=== PATIENT | female | born 1975 | race Hispanic/Latino ===

== ENCOUNTER 2023-10-28 06:56 | Observation (INO) | payer OTHER ==
[2023-10-27 09:51] LABS: BASOPHILS # (AUTO) 0.02 K/uL (0.00-0.20); BASOPHILS % (AUTO) 0.4 % (0.0-5.0); EOSINOPHILS # (AUTO) 0.06 K/uL (0.00-0.70); EOSINOPHILS % (AUTO) 1.2 % (0.0-8.0); HEMATOCRIT 39.4 % (36-48); IMMATURE GRANULOCYTE ABSOLUTE 0.01 K/uL (0-1); LYMPHOCYTES # (AUTO) 2.1 K/uL (1.0-4.8); LYMPHOCYTES % (AUTO) 40.7 % (21.0-51.0); MEAN CORPUSCULAR HGB CONC 33.8 g/dL (32.0-36.0); MONOCYTES # (AUTO) 0.3 K/uL (0.1-1.0); MONOCYTES % (AUTO) 5.4 % (3.0-13.0); NEUTROPHILS # (AUTO) 2.7 K/uL (1.8-7.7); NEUTROPHILS % (AUTO) 52.1 % (40.0-77.0); PLATELET COUNT (AUTO) 362 K/uL (130-400); RED BLOOD CELL COUNT(AUTO) 4.58 MIL/uL (4.00-5.50); RED CELL DISTRIBUTION WIDTH 12.6 % (11.0-15.5); WHITE BLOOD COUNT (AUTO) 5.2 K/uL (4.8-10.8)
[2023-10-27 09:57] VITALS: BP 118/82; PULSE 55; RESP 18
[2023-10-27 10:33] LABS: CREATININE 0.7 mg/dL (0.5-1.0); POTASSIUM 4.2 mmol/L (3.5-5.1)
[~2023-10-28] VITALS: Ht 170.2 cm; Wt 79.9 kg
[2023-10-28] VITALS (28 sets, daily range): BP systolic 114–147; BP diastolic 66–90; PULSE 62–103; RESP 9–19; O2SAT 99–100
[~2023-10-28 06:56] MED LIST: IRON PO; OMEGA 3 PO; OMEP40CA21 PO; SUCR1TAB28 PO
[2023-10-28] MEDS ORDERED: CEFAZOLIN SODIUM 2 GM VIAL ONE (07:11)
[2023-10-28] MEDS ORDERED: LACTATED RINGERS 1000ML 1,000 ML IV ONE (07:11)
[2023-10-28] MEDS ORDERED: ROCURONIUM BROMIDE 10MG/1ML 5ML VL ONE ×2 (08:17→11:21)
[2023-10-28] MEDS ORDERED: PROPOFOL 10 MG/ML 20ML VIAL IV ONE (08:17)
[2023-10-28] MEDS ORDERED: MIDAZOLAM HCL 1 MG/ML 2ML VIAL ONE (08:17)
[2023-10-28] MEDS ORDERED: LIDOCAINE PF 100MG/5ML (2%) SYRINGE 5ML ONE (08:17)
[2023-10-28] MEDS ORDERED: FENTANYL CITRATE PF 50 MCG/1 ML 2ML VIAL ONE (08:18)
[2023-10-28] MEDS ORDERED: DEXAMETHASONE SOD PHOSPHATE 4 MG/ML 1ML VIAL ONE (08:20)
[2023-10-28] MEDS ORDERED: ONDANSETRON 4MG INJ ONE (08:21)
[2023-10-28] MEDS: CEFAZOLIN SODIUM 2 GM VIAL IVPB ONE (09:35)
[2023-10-28] MEDS ORDERED: INDOCYANINE GREEN 25 MG VIAL IJ ONE (09:59)
[2023-10-28] MEDS ORDERED: BUPIVACAINE/PF 0.25% 30ML VIAL IJ ONE (10:01)
[2023-10-28] MEDS ORDERED: GLYCOPYRROLATE 0.2 MG/ML 5 ML VIAL ONE (10:16)
[2023-10-28] MEDS ORDERED: PHENYLEPHRINE HCL 10 MG/ML 1ML VIAL IV ONE (10:16)
[2023-10-28] MEDS ORDERED: HYDROMORPHONE 1 MG INJ ONE (10:21)
[2023-10-28] MEDS ORDERED: ROPIVACAINE 0.5% 5MG/ML 30ML ONE (12:51)
[2023-10-28] MEDS ORDERED: ONDANSETRON 4MG INJ IVP PRN (13:30)
[2023-10-28] MEDS ORDERED: HYDROCODONE/ACETAMINOPHEN 5/325 MG TAB PO PRN (13:30)
[2023-10-28] MEDS: ACETAMINOPHEN 1,000 MG/100 ML VIAL IV ONE (14:20)
[2023-10-28] MEDS: KETOROLAC 15MG/ML VIAL (15MG/ML) ONE (14:22)
[2023-10-28] MEDS: KETOROLAC 15MG/ML VIAL (15MG/ML) IV SCH (19:46)
[2023-10-28] MEDS: FAMOTIDINE 20MG VIAL IV SCH (19:48)
[2023-10-29] MEDS: HYDROMORPHONE 0.5 MG SYG (0.5MG/0.5ML) IVP PRN (02:02)
[2023-10-29] MEDS: LACTATED RINGERS 1000ML 1,000 ML IV SCH (02:50)
[2023-10-29 04:01] VITALS: BP 117/76; PULSE 74; RESP 16
[2023-10-29 08:00] VITALS: BP 133/94; PULSE 70; RESP 18
[2023-10-29] MEDS: FAMOTIDINE 20MG VIAL IV ONE (08:46)
[2023-10-29] MEDS: SIMETHICONE 80 MG TAB.CHEW PO SCH (08:46)
[2023-10-29] MEDS: ENOXAPARIN SODIUM 30 MG/0.3 ML SQ SCH (08:48)
[2023-10-29 11:22] VITALS: BP 130/84; PULSE 70; RESP 18
[2023-10-29 11:25] VITALS: O2SAT 98
[2023-10-29 14:00] VITALS: BP 135/80; PULSE 67; RESP 18
== END 2023-10-29 17:30 | disposition home or self-care (01) ==
LOC: DAH 06:56 → DAHIP 06:57 → DAH 06:57 → INTOOBSV 06:57 → 4DH 14:35
PROVIDERS: ADMIT Surgery; ATTEND Surgery
DX: K44.9 Diaphragmatic hernia without obstruction or gangrene (principal); K21.00 Gastro-esophageal reflux disease with esophagitis, without bleeding; K22.10 Ulcer of esophagus without bleeding; Z90.710 Acquired absence of both cervix and uterus; Z79.899 Other long term (current) drug therapy
CPT/HCPCS: 43280; S2900; 36415; 43235; 80048; 85025; 86850; 86900; 86901; 96372; 96374; 96375; 96376; G0378; J1100; J1170; J1650; J1885; J2001; J2250; J2371; J2405; J2704; J2795; J3010; J3490; J7120; A4213; A4215; A4221; A4222; A4223; A4600; A4663; A4930; A6260; C1781; G0168; J0665; J0690